=== PATIENT | female | born 1990 | race Caucasian/White ===

== ENCOUNTER 2020-06-24 06:45 | Inpatient (IN) | payer OTHER, SELFPAY ==
[2020-06-24] VITALS (148 sets, daily range): BP systolic 59–133; BP diastolic 27–96; PULSE 75–147; RESP 14; TEMP 36.3–37.1; O2SAT 84–100; BMI 39.7
[2020-06-24 07:38] LABS: Basophils Absolute Auto 0.1 K/mm3 (0.0-0.1); Basophils Percent Auto 0.4 % (0.2-1.2); Eosinophils Absolute Auto 0.1 K/mm3 (0-0.3); Eosinophils Percent Auto 1.3 % (0-4.4); Hematocrit 36.6 % (37.0-47.0); Hemoglobin 12.2 g/dL (12.0-15.0); Immature Granulocyte Absolute 0.15 K/mm3 (0.00-0.031); Immature Granulocyte Percent A 1.3 % (0-0.5); Lymphocytes Absolute Auto 2.53 K/mm3 (0.9-3.2); Lymphocytes Percent Auto 22.7 % (18.3-44.2); Mean Corpuscular HGB Conc 33.3 g/dl (32-36); Mean Corpuscular Hemoglobin 32.4 pg (26-34); Mean Corpuscular Volume 97.3 fl (80-100); Mean Platelet Volume 10.4 fl (7.4-10.4); Monocytes Absolute Auto 0.9 K/mm3 (0.1-0.6); Neutrophils Absolute Auto 7.4 K/mm3 (1.3-6.7); Neutrophils Percent Auto 66.3 % (45.5-73.1); Platelet Count Result 244 k/mm3 (150-375); Red Blood Count 3.76 M/mm3 (4.2-5.4); Red Cell Distribution Width 14.9 % (11.5-14.5); White Blood Count 11.1 K/mm3 (4.5-10.0)
[2020-06-24] MEDS: LACTATED RINGERS 1,000 ML 125 ML IV CONT ×2 (07:39→11:16)
[2020-06-24] MEDS: OXYTOCIN 30 UNITS/NS 500 ML 30 UNITS/500 ML BAG 125 UNITS IV CONT (07:41)
--- NOTE | 2020-06-24 07:41 | PM.IMHP ---
H&P: HPI History of Present Illness Date/Time: 06/24/20 07:17 Chief complaint: Induction of Labor Narrative: Carmen Escobedo is a 29 yo @ 39.0wks (KELLI [birth year]) who presents to L&D for elective IOL. She denies any issues. Has mild, irregular cramping. Good movement. No vaginal bleeding or leakage of fluid. 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) s/p MFM consult Review of Systems Constitutional: Constitutional: Denies chills and Denies fatigue Eyes: Eyes: Denies blurry vision Cardiovascular: Cardiovascular: Denies chest pain and Denies palpitations Respiratory: Respiratory: Denies cough and Denies dyspnea Gastrointestinal: Gastrointestinal: Denies abdominal pain, Denies nausea and Denies vomiting Genitourinary: Comments: no vaginal bleeding or leakage of fluid Neurologic: Denies headache(s) Psychiatric: Psychiatric: Denies anxiety [facility] Family History Family History Father Hemophilia A Son Hemophilia A Social History Social History Substance use: never Gender identity (if verbalized by the patient): Female Spiritual care concerns: No Meds Home Medications and Allergies Home Medications Medication Instructions Recorded Confirmed Type PNV cmb#95-ferrous fumarate-FA 1 tablet PO DAILY 06/04/20 06/04/20 History [] Allergies Allergy/AdvReac Type Severity Reaction Status Date / Time No Known Allergies Allergy Verified 06/24/20 07:30 Vital Signs Vital Signs - 24 hr 06/24/20 07:13 06/24/20 07:16 Pulse Rate 92 93 Blood Pressure 107/61 98/62 L Exam Const: General: comfortable and no acute distress Resp: Effort & Inspection: normal respiratory effort Cardio: Rate: regular rate : Other: FHT's:120's/ mod sarah/ + accels/ no decels TOCO:no ctx's Membranes: AROM, clear @ 0735 Cervix: 3/50/-3 Position: cephalic Skin: General skin exam: normal color Neuro: Speech: normal speech Extrem: General: normal to inspection Psych: Mental Status: mental status grossly normal Assessment and Plan Assessment and plan (1) : Qualifiers: Weeks of gestation: 39 weeks Qualified Code(s): Z3A.39 - 39 weeks gestation of Code(s): Z34.90 - Encounter for supervision of normal , unspecified, unspecified trimester Status: Acute (2) Encounter for elective induction of labor: Code(s): Z34.90 - Encounter for supervision of normal , unspecified, unspecified trimester Status: Acute Additional Plan - Admit to L&D for elective IOL - Plan for pitocin per protocol, AROM clear @ 0735 - Labs reviewed normal; GBS negative - FHT reassuring; continuous monitoring - Anesthesia consult PRN pain
--- NOTE | 2020-06-24 11:05 | WPDANESEPP ---
Anes - Eval Pre Procedure Procedure: labor epidural Date/Time: 06/24/20 11:05 Surgeon: ricardo Preop Diagnosis: pain during labor Pre Op Diagnosis: Induction of Labor Patient Data Age: 29 Gender: F Height: 1.55 m Weight: 95.5 kg Last Vital Signs Temp 36.3 C L 06/24/20 10:00 Pulse 80 06/24/20 11:01 BP 113/70 06/24/20 11:01 Allergies Allergy/AdvReac Type Severity Reaction Status Date / Time No Known Allergies Allergy Verified 06/24/20 07:30 Home Medications Medication Instructions Recorded Confirmed Type PNV cmb#95-ferrous fumarate-FA 1 tablet PO DAILY 06/04/20 06/24/20 History [] Laboratory Tests 06/24/20 06/24/20 06/24/20 07:27 07:27 07:27 WBC 11.1 K/mm3 H K/mm3 (4.5-10.0) RBC 3.76 M/mm3 L M/mm3 (4.2-5.4) Hgb 12.2 g/dL g/dL (12.0-15.0) Hct 36.6 % L % (37.0-47.0) MCV 97.3 fl fl (80-100) MCH 32.4 pg pg (26-34) MCHC 33.3 g/dl g/dl (32-36) RDW 14.9 % H % (11.5-14.5) Plt Count 244 k/mm3 k/mm3 (150-375) MPV 10.4 fl fl (7.4-10.4) Immature Gran % (Auto) 1.3 % H % (0-0.5) Neut % (Auto) 66.3 % % (45.5-73.1) Lymph % (Auto) 22.7 % % (18.3-44.2) [place] % (Auto) 8.0 % % (2.6-8.5) Eos % (Auto) 1.3 % % (0-4.4) Baso % (Auto) 0.4 % % (0.2-1.2) Lymph # (Auto) 2.53 K/mm3 K/mm3 (0.9-3.2) [place] # (Auto) 0.9 K/mm3 H K/mm3 (0.1-0.6) Eos # (Auto) 0.1 K/mm3 K/mm3 (0-0.3) Baso # (Auto) 0.1 K/mm3 K/mm3 (0.0-0.1) Abs Immat Gran (auto) 0.15 K/mm3 H K/mm3 (0.00-0.031) Absolute Neuts (auto) 7.4 K/mm3 H K/mm3 (1.3-6.7) Absolute Nucleated RBC 0.0 K/mm3 K/mm3 (0.0-0.012) Nucleated RBC % 0.0 % % (0.0-0.2) RPR Pending Blood Type O Positive Antibody Screen Negative Patient hx anesthesia problems: none Family hx anesthesia problems: none PMFSH Family History Family History Father Hemophilia A Son Hemophilia A Social History Social History Smoking status: Never smoker Substance use: never Gender identity (if verbalized by the patient): Female Spiritual care concerns: No Exam Day of Procedure 06/24/20 11:05
--- NOTE | 2020-06-24 12:55 | PM.OBPNLAB ---
Pain Control Date/time seen: 06/24/20 12:55 Pain control: epidural Pelvic Exam Dilation (cm): 5 Effacement (%): 50 station: -3 Amniotic membrane status: Ruptured (clear 0740) Contractions Monitor mode: External Contraction frequency: 3 Contraction pattern: Regular Status status: Category l Assessment and Plan Pitocin rate (mU/min): 12 Plan: continuous present management
--- NOTE | 2020-06-24 16:49 | PM.OBPNLAB ---
Pain Control Date/time seen: 06/24/20 16:45 Pelvic Exam Dilation (cm): 8 Effacement (%): 100 station: -1 Amniotic membrane status: Ruptured (clear 0740) Contractions Monitor mode: External Contraction frequency: 3 Contraction pattern: Regular Status status: Category ll (variables) Assessment and Plan Pitocin rate (mU/min): 16 Assessment: active labor Plan: continuous present management
--- NOTE | 2020-06-24 18:14 | P.PCNOB_ITS ---
OB - Delivery Note Procedure Delivery date: 06/24/20 events: Labor Induction Induction method: per misoprostol protocol Delivery augmentation: rupture of membranes Delivery monitor: external FHT and external uterine Route of delivery: Laceration description: None Specimen: No Estimated blood loss (mL): 400 Anesthesia type: Epidural Disposition: floor Narrative: Patient progressed to complete dilation and began pushing with good maternal effort. She pushed for approximately 30 minutes and delivered the head over intact perineum. No nuchal cord was palpated and the shoulders and body delivered without complications. The was immediately placed skin to skin and had good tone and cry. After approximately 1 minute the umbilical cord was then clamped and cut. A segment of the cord was collected for cord gases and the remaining cord blood was collected for typing. With gentle downward traction on the cord, the placenta delivered without complications. Pitocin was then started and bimanual exam revealed a boggy uterus. Bimanual massage was performed until misoprostol could be placed rectally and good fundal tone was noted. The cervix, vagina, and perineum were examined and no lacerations were identified. Sponge, lap, instrument counts were correct at the end procedure. Mom and baby were left bonding in the birthing suite in a stable condition. [place] Baby Date of : 06/24/20 Time of : 17:53 Weeks of gestation at delivery: 39 Infant gender: Female Weight (pounds): 7 Weight (ounces): 13 presentation: vertex position: Right Occiput Anterior Placenta delivery description: Expressed cord vessel description: 3 Vessels score one minute: 9 score five minutes: 9
[2020-06-24] MEDS: ACETAMINOPHEN 500 MG TABLET 1000 MG PO (18:27)
--- NOTE | 2020-06-24 18:40 | PC.NURSE ---
Oxytocin administration on NOV was entered by Ruthy Munoz at 0710 under order for 125 mls/hr, but was really given as oxytocin induction at 2 mls/hr titration (see [facility] notes). Remainder of 500 mls given at 999 mls/hr at 1758 by David Brumfield. Oxytocin order for 125 mls/hr administered at 1810 per Trinity Metzger.
[2020-06-24] MEDS: METHYLERGONOVINE MALEATE 0.2 MG/ML VIAL IM (19:09)
[2020-06-24] MEDS: METHYLERGONOVINE MALEATE 0.2 MG/ML VIAL (20:15)
[2020-06-24] MEDS: IBUPROFEN 600 MG TABLET PO (22:22)
[2020-06-25] MEDS: IBUPROFEN 600 MG TABLET PO ×3 (04:43→16:23)
[2020-06-25 05:20] LABS: Hematocrit 29.6 % (37.0-47.0); Hemoglobin 9.9 g/dL (12.0-15.0)
[2020-06-25 08:00] VITALS: BP 127/82; PULSE 88; RESP 18; TEMP 36.8
--- NOTE | 2020-06-25 08:17 | WPDANLDPN2 ---
Anes-Prog Note L&D Date/Time: 06/25/20 08:17 Comfortable throughout: labor and delivery Neuraxial method: epidural Epidural/Spinal procedure site: clean & non-tender Neuro status: Neuro function grossly intact. Cardiovascular status: normal Respiratory status: normal Airway patency: baseline Mental status: baseline Post-Op hydration status: normal Vital Signs: Last Vital Signs Temp 37.1 C 06/24/20 20:55 Pulse 83 06/24/20 20:55 Resp 14 06/24/20 20:55 BP 110/69 06/24/20 20:55 Pulse Ox 96 06/24/20 20:55 Pain score (VAS): 0 I/O: Intake & Output 06/24/20 06/25/20 06/25/20 23:59 07:59 15:59 Intake Total 500 Output Total 675 Balance -175 Post-procedural complaints: none Patient feedback: Patient satisfied with anesthetic care.
[2020-06-25] MEDS: MULTIVIT/MIN/PREN/FOL AC/IRON TABLET 1 TAB PO (08:25)
[2020-06-25] MEDS: DOCUSATE SODIUM 100 MG CAPSULE PO ×2 (08:26→16:23)
[2020-06-25] MEDS: POLYSACCHARIDE IRON COMPLEX 150 MG CAPSULE PO ×2 (08:26→16:24)
[2020-06-25 09:15] LABS: Rapid Plasma Reagin Non-Reactive (NonReactive)
[2020-06-25] MEDS: ACETAMINOPHEN 325 MG TABLET 650 MG PO (10:39)
--- NOTE | 2020-06-25 11:21 | PC.NURSE ---
Patient was given the opportunity to view the discharge video Mother & Baby Care, The First Two Weeks and to ask questions. Patient declined viewing the video and has been given the mother/baby guide for home reference.
[2020-06-25 12:30] VITALS: BP 127/82; PULSE 88; RESP 18; TEMP 36.8; O2SAT 96
--- NOTE | 2020-06-25 12:45 | PM.OBPNVD ---
OB - PN: Subj Subjective Date/time seen: 06/25/20 12:45 PPD#1 Carmen reports doing well today. Her pain/cramping is controlled w/ PO pain meds. Her bleeding is much sales counselor today,denies any symptoms of anemia. She reports tolerating regular diet. She is voiding and passing gas. She is breast and bottle feeding. She would like to go home today. She denies fever, chills, CP, SOB, cough, headache, vision changes, nausea, vomiting, dizziness or palpitations. OB - PN: Obj Data Labs CBC & Chem 7: 06/25/20 04:39 Labs: Laboratory Results - last 24 hr 06/24/20 06/25/20 07:27 04:39 Hgb 9.9 L Hct 29.6 L RPR Non-reactive OB - PN A/P Assessment and Plan (1) Vaginal delivery: Code(s): O80 - Encounter for full-term uncomplicated delivery Status: Acute Plan day: 1 Plan: routine care and discharge home Comments: - ER return precautions discussed: N/V/abdominal pain, bleeding, PEC signs, fever - Pelvic rest and take meds as prescribed - F/u in clinic in 4 weeks. Time Spent With Patient Time: Total time spent is greater than 50% in coordination of care (as documented) at patient's floor/unit and/or counseling patient: Review of Systems Review of Systems: All systems reviewed & are unremarkable except as noted in HPI and below (HPI) Exam Const: General: comfortable, no acute distress, alert and awake Orientation/consciousness: patient oriented x3 Resp: Effort & Inspection: normal respiratory effort Auscultation: clear to auscultation bilaterally Cardio: Rate: regular rate GI: Auscultation: normal bowel sounds Other: soft, mildly distended, non-tender : Other: fundus firm below umbilicus Psych: Appearance: grossly normal Attitude: cooperative Judgement: Good judgement present (Psych)
--- NOTE | 2020-06-25 17:12 | PC.NURSE ---
Self care and infant care discharge instructions given to pt. including follow up visit date and time. Mother verbalized understanding. No questions or concerns verbalized. Very pleasant and cooperative.
[2020-06-26 08:31] VITALS: BP 120/74; PULSE 81; RESP 20; TEMP 36.9; O2SAT 100
--- NOTE | 2020-06-29 11:52 | PM.OBDSVD ---
DS: Admitting Diagnosis Admitting Diagnosis Admitting Diagnosis: Induction of Labor DS: Discharge Diagnosis Discharge Diagnosis (1) Vaginal delivery: Code(s): O80 - Encounter for full-term uncomplicated delivery Status: Acute OB - DS: Summary OB Procedures : Ultrasound OB Procedures Intrapartum: Spontaneous Vag Delivery OB Procedures: : None Peripartum Data Infant Delivery Method: Natural Vaginal Laceration description: None complications: none 1: Gender: Female Disposition of : home Status at Discharge Functional status at discharge: independent ambulation Overall status at discharge: patient is back to baseline Time Spent with Patient Time attestation: Total time spent providing and/or coordinating discharge services: Exam Const: General: comfortable, no acute distress, alert and awake Orientation/consciousness: patient oriented x3 Resp: Effort & Inspection: normal respiratory effort Auscultation: clear to auscultation bilaterally Cardio: Rate: regular rate GI: Inspection: non-distended GI Palp: Yes Soft to palpation and No Tenderness to palpation present (GI) Auscultation: normal bowel sounds : Other: fundus firm below umbilicus Psych: Appearance: grossly normal Affect: normal affect Attitude: cooperative Judgement: Good judgement present (Psych) Discharge Plan Discharge Attending physician on discharge: Paulette Gonzalez Discharging Clinician: Paulette Gonzalez Anticipated Discharge Date/Time: 06/25/20 18:00 Patient Disposition: Home, Self-Care Activity: pelvic rest Diet: regular Discharge Instructions: Education: Mom and Baby Guide Given to: Mother Follow-Up: Call your delivering provider's office for an appointment to be seen in: 4 Weeks Mom and baby should come to the [facility] for the follow-up appointment. Appointment Date/Time: June 26, 2020 at 8:00 am What to expect at your follow-up visit: Blood Pressure Check Physical Assessment Call [phone] if you are unable to keep your appointment time. BREAST CARE: * Wear a snug supportive bra. Bottle Feeding: * May apply ice packs EPISIOTOMY/PERINEAL CARE: * Until bleeding stops, use your asim bottle after urinating * Change your pad frequently throughout the day * You may take sitz baths several times a day (fill your bathtub with warm water and soak for 20 minutes.) Do NOT bathe in the water * No tub baths until seen by your physician - You may shower ACTIVITY: * Rest as much as possible. * Do not exercise or lift anything heavier than your baby (such as laundry or other children.) * Avoid stairs or driving as much as possible. * Do not put anything into the vagina. No douching, tampons, or sexual activity until seen by physician. NOTIFY PHYSICIAN IF YOU HAVE ANY QUESTIONS OR IF ANY OF THE FOLLOWING SYMPTOMS OCCUR: * If your vaginal bleeding becomes foul smelling. * If your vaginal bleeding becomes more heavy than a period or if your bleeding changes from pink to bright red. However, you may pass an occasional walnut-sized clot once or twice for the first week . * If you experience a sharp, shooting pain in you calves. * If you discover a hard, reddened area on your breast or if you experience flu-like symptoms. DIET: * Eat regular, well-balanced meals. * Drink plenty of fluids daily. If , drink to thirst. Patient Instructions: Antibiotic Form Stand Alone Forms: General Discharge Information Follow-up/Referrals: Paulette Gonzalez MD [Physician] - 4 Weeks Discharge Medications: New ibuprofen 600 mg Tablet 600 mg PO Q6H PRN (Reason: Cramping) 10 Days Qty: 40 RF: 0 acetaminophen [Mapap (acetaminophen)] 325 mg Tablet 650 mg PO Q6H PRN (Reason: Mild Pain (1-3) Or Headache) 10 Days Qty: 40 RF: 0 Continued PNV cmb#95-ferrous fumarate-FA []
== END 2020-06-25 18:23 | disposition home or self-care (01) | DRG 560 ==
LOC: ANHLDR 06:52 → ANHOB2 20:40
PROVIDERS: Admitting Provider Obstetrics & Gynecology; Visit Provider Obstetrics & Gynecology
DX: O76 Abnormality in fetal heart rate and rhythm complicating labor and delivery (principal); Z3A.39 39 weeks gestation of pregnancy; Z37.0 Single live birth
CPT/HCPCS: 36415; 85014; 85018; 85025; 86592; 86850; 86900; 86901; A9270; J2210; J2590; J2795; J7120

== ENCOUNTER 2020-09-27 00:30 | Outpatient (CLI) | payer OTHER, SELFPAY ==
[2020-09-27 18:50] LABS: SARS-CoV-2 RNA PCR Negative
== END 2020-09-27 00:31 | disposition home or self-care (01) ==
LOC: ANHCOVIDDT 00:30
PROVIDERS: Visit Provider Surgery
DX: Z01.812 Encounter for preprocedural laboratory examination (principal); Z20.822 Contact with and (suspected) exposure to COVID-19
CPT/HCPCS: C9803; U0003

== ENCOUNTER 2020-09-30 00:33 | Day surgery (SDC) | payer OTHER, SELFPAY ==
[2020-09-21 10:36] VITALS: BMI 34.1
--- NOTE | 2020-09-29 16:08 | PM.SD ---
Same Day Admit/Disch: HPI History of Present Illness Chief complaint: Umbilical Hernia Narrative: Carmen Escobedo is a 30 year old female who developed an umbilical hernia during her recent . She gave in early June. The umbilical hernia got smaller but did not go away. It remains present and is tender to palpation. It hurts from time to time as well. She was seen in the office in is taken to surgery now for umbilical hernia repair. [facility] Family History Family History Father Hemophilia A Heart disease Son Hemophilia A Other Diabetes mellitus Social History Social History Years smoked: 11 Smoking status: Current every day smoker Tobacco type: cigarettes Alcohol intake: never Substance use: never Living arrangements: with family Gender identity (if verbalized by the patient): Female Spiritual care concerns: No Same Day Admit/Disch: Med Pre-admit Medications Home Medications Medication Instructions Recorded Confirmed Type PNV cmb#95-ferrous fumarate-FA 1 tablet PO DAILY 90 Days #90 06/25/20 09/30/20 Rx [] tablet hydrocodone-acetaminophen 1 - 2 tablet PO Q6H PRN #7 tablet 09/30/20 Rx ketorolac 10 mg PO Q6H 4 Days #16 tablet 09/30/20 Rx Exam Const: General: comfortable, no acute distress, alert and awake HENMT: Head: normocephalic and atraumatic Mouth: Yes Normal oral and palatal mucosa present Eyes: Conjunctivae: conjunctivae normal Pupils: Equal, round and reactive pupils present EOM: EOMs intact bilaterally Neck: Neck: normal visual inspection, no lymphadenopathy and nontender Resp: Effort & Inspection: normal respiratory effort Auscultation: clear to auscultation bilaterally Cardio: Rate: regular rate Rhythm: regular rhythm Heart sounds: no gallops, no murmurs and no rubs GI: Inspection: non-distended and visible herniation ( Umbilical) GI Palp: Yes Soft to palpation, Yes Tenderness to palpation present (GI), No Hepatomegaly present, No Splenomegaly present and Yes Hernia present ( tender but reducible umbilical hernia) Auscultation: normal bowel sounds Skin: Lesions: no lesions Rashes: no rashes Neuro: General: no focal motor deficits and CN's II-XI intact bilaterally Cranial nerves: Yes Equal, round and reactive pupils present, Yes Bilaterally intact EOM present, Yes facial symmetry and Yes Midline tongue present Speech: normal speech Motor exam (neuro): 5/5 motor strength present throughout and Motor abnormalities not present Extrem: General: no clubbing, cyanosis or edema and edema Psych: Affect: normal affect Thought process: Normal thought process present Insight: Good insight present (Psych) DS: Summary Hospital Course Hospital Course: Patient went home after outpatient surgical procedure Time Spent with Patient Time attestation: Total time spent providing and/or coordinating discharge services: DS: Admitting Diagnosis Admitting Diagnosis Admitting Diagnosis: symptomatic reducible umbilical hernia - plan to proceed with umbilical hernia repair under anesthesia. The procedure the risks the benefits have been discussed. All questions were answered. Patient agrees to go ahead. DS: Discharge Diagnosis Discharge Diagnosis (1) Umbilical hernia without mention of obstruction or gangrene: Qualifiers: Obstruction and gangrene presence: without obstruction or gangrene Qualified Code(s): K42.9 - Umbilical hernia without obstruction or gangrene Code(s): K42.9 - Umbilical hernia without obstruction or gangrene Status: Acute Discharge Plan Discharge Patient Disposition: Home, Self-Care Discharge Instructions: 1. May shower the day after surgery over incision. 2. Call office for: -Wound increasingly painful or bleeding -Vomiting -Fever of greater than 101 degrees 3. Expect some blood on d
[2020-09-30 10:15] VITALS: BP 112/67; PULSE 79; RESP 20; TEMP 36.9; O2SAT 100
--- NOTE | 2020-09-30 10:38 | WPDHPUPDATE1 ---
History and Physical Update Update Date/Time: 09/30/20 10:38 History and Physical has been reviewed, including an updated exam of the patient. There are NO changes in the patient's condition. Risks, benefits, and alternatives have been discussed and questions answered. Patient agrees to proceed with procedure.
[2020-09-30] MEDS: ACETAMINOPHEN 500 MG TABLET 1000 MG PO (10:42)
[2020-09-30] MEDS: LACTATED RINGERS 1,000 ML 30 ML IV CONT (10:42)
[2020-09-30] MEDS: KETOROLAC 15 MG/ML VIAL (*BKC) IV PUSH (10:42)
--- NOTE | 2020-09-30 11:10 | WPDANESEPPF ---
Anes - Initial Pre Proc Eval Procedure: Operation Date: 09/30/20 12:00 Proposed Procedures p Repair of Umbilical Hernia - Tomasz Mehta MD Date/Time: 09/30/20 11:10 Surgeon: Tomasz Mehta MD Pre Op Diagnosis: Umbilical Hernia Patient Data Age: 30 Gender: F Height: 5 ft 1 in Weight: 83.6 kg Last Vital Signs Temp 98.5 F 09/30/20 10:15 Pulse 79 09/30/20 10:15 Resp 20 09/30/20 10:15 BP 112/67 09/30/20 10:15 Pulse Ox 100 09/30/20 10:15 Allergies Allergy/AdvReac Type Severity Reaction Status Date / Time No Known Allergies Allergy Verified 09/30/20 10:14 Home Medications Medication Instructions Recorded Confirmed Type PNV cmb#95-ferrous fumarate-FA 1 tablet PO DAILY 90 Days #90 06/25/20 09/30/20 Rx [] tablet Patient hx anesthesia problems: none Family hx anesthesia problems: none PMFSH Family History Family History Father Hemophilia A Heart disease Son Hemophilia A Other Diabetes mellitus Social History Social History Years smoked: 11 Smoking status: Current every day smoker Tobacco type: cigarettes Alcohol intake: never Substance use: never Living arrangements: with family Gender identity (if verbalized by the patient): Female Spiritual care concerns: No Anes - Eval Final PreProcedure Day of Procedure 09/30/20 11:10 Patient weight: overweight Heart: regular rate and rhythm Lungs: clear to auscultation Airway: Mallampati scale class II Neurological: alert and oriented Last oral intake: >/= 8 hours ASA classification: II Emergent: no Anesthetic plan: proceed Anesthesia type and monitoring: general GIVS and standard monitoring Informed Consent: The patient's anesthetic plan and its attendant risks and benefits were discussed with the patient/family/POA. Questions were solicited and answers provided to the satisfaction of the patient/family/POA.
[2020-09-30] MEDS: ceFAZolin 2 GM/D5W 50 ML 2 GM/50 ML BAG IVPB (12:53)
[2020-09-30 13:21] VITALS: BP 96/75; PULSE 65; RESP 14; O2SAT 97
--- NOTE | 2020-09-30 13:27 | P.OP_ITS ---
Procedure Note - Detailed Date of procedure: 09/30/20 Pre-op diagnosis: Umbilical Hernia Post-op diagnosis: same Procedure performed: Umbilical hernia repair Description of procedure: Patient was taken to the operating room and IV sedation was administered. Prep and drape was carried out. The proposed incision along the lower margin of the umbilicus was marked on the skin. Local anesthetic was infiltrated into the skin and the deeper subcutaneous tissues. Incision was made and dissection was carried down through the skin and to the hernia sac. The sac was then dissected free from the umbilical skin and the surrounding subcutaneous tissues. It was dissected down to its neck. Additional local anesthetic was infiltrated into the neck and the fascia surrounding the neck of the hernia sac. The sac was then amputated at its neck. The subcutaneous was undermined around the hernia defect. Additional local was infiltrated around the fascia. The hernia defect was closed with [id number] mattress sutures of 0 Ethibond. The umbilical skin was tacked to the fascia with 3 0 Vicryl suture. The subcutaneous was closed with 3 0 Vicryl. Subcuticular interrupted 4 O Vicryl skin stitches were placed. The skin was then closed with running 4 0 Monocryl subcuticular suture. Wound was dressed with Exofin surgical adhesive. The patient was awakened and taken to recovery in good condition. Counts were correct x2. Anesthesia: MAC and local (0.5% Marcaine with Exparel) Surgeon: Tomasz Mehta MD Program And Research Coordinator: Omari FRAUSTO Estimated blood loss (mL): 5 Drains: No Packing: No Pathology: none sent Complications: None Condition: stable Disposition: same day Findings: Seven millimeter hernia defect
[2020-09-30 13:50] VITALS: BP 104/77; PULSE 64; RESP 12
[2020-09-30 14:03] VITALS: BP 98/75; PULSE 72; RESP 16
== END 2020-09-30 14:22 | disposition home or self-care (01) ==
PROVIDERS: Visit Provider Surgery
PROC: (CPT 49585; principal; 2020-09-30 12:00)
DX: K42.9 Umbilical hernia without obstruction or gangrene (principal); F17.210 Nicotine dependence, cigarettes, uncomplicated
CPT/HCPCS: 49585; A9270; C9290; J0690; J1885; J2001; J2250; J2405; J2704; J3010; J7120

== ENCOUNTER 2022-10-09 12:33 | Emergency (ER) | payer OTHER, SELFPAY ==
[2022-10-09 12:43] VITALS: BP 107/67; PULSE 77; RESP 18; TEMP 36.9; O2SAT 100
--- NOTE | 2022-10-09 13:00 | ED.URI ---
HPI - URI/Sore Throat General Chief Complaint: Upper Respiratory Infection Stated Complaint: Cough Time Seen by Provider: 10/09/22 12:58 Source: patient and RN notes reviewed Mode of arrival: ambulatory Limitations: no limitations History of Present Illness HPI Narrative: 32-year-old female presents concern for one-month history of cough, nasal congestion after a positive influenza test 1 month ago. She reports she started having a sore throat today. Reports using [id number] medications without relief. Denies fever, shortness of breath MD elicited complaint: cough and sore throat Related Data Allergies Allergy/AdvReac Type Severity Reaction Status Date / Time No Known Allergies Allergy Verified 10/09/22 12:48 Review of Systems Review of Systems: CONSTITUTIONAL: Denies malaise, chills, sweats, or fever. EYES: Denies visual changes, redness, or discharge. ENT: Reports rhinorrhea, congestion, and sore throat. Denies sinus pain, otalgia CARDIOVASCULAR: Denies chest pain, palpitations, or edema. RESPIRATORY: Reports persistent productive cough. Denies dyspnea. GASTROINTESTINAL: Denies abdominal pain, nausea, vomiting, diarrhea SKIN: Denies rash or itching. MUSCULOSKELETAL: Denies myalgia. NEUROLOGIC: Denies headache. All systems reviewed & are unremarkable except as noted in HPI and below PMFSH Surgical History Surgical History Umbilical hernia without mention of obstruction or gangrene 09/30/20 Family History Family History Father Hemophilia A Heart disease Son Hemophilia A Other Diabetes mellitus Social History Social History (Updated 02/23/22 @ 09:13 by Susan Alexis MA) Years smoked: 11 Smoking status: Current some day smoker Tobacco type: cigarettes Alcohol intake: never Substance use: never Substance use type: does not use Additional occupation/education comments: [employer] Gender identity (if verbalized by the patient): Female Sexual Orientation (if Verbalized by the Patient): Straight or Heterosexual Spiritual care concerns: No Comments At time of signature, agree with nursing past medical, surgical, social and family history. There is no relevant family history pertinent to the presenting complaint Exam Narrative: GENERAL: Nontoxic-appearing and in no acute distress. HEAD: Normocephalic EYES: PERRLA, conjunctivae clear ENT: Nares clear, turbinates edematous and erythematous. Mucous membranes moist. TM pearly quiñones with dull light reflex bilaterally; no tragal tenderness. Oropharynx not erythematous without lesions. Tonsils not enlarged and without exudate, no drooling, no hoarseness, no trismus, uvula midline. NECK: Supple. No lymphadenopathy CHEST: Clear to auscultation, breath sounds equal. No wheezing, rhonchi, rales, or stridor. No respiratory distress, speaks in full sentences. HEART: Regular rate and rhythm. No murmur heard. SKIN: Warm, dry, no rash. NEURO: Alert and oriented x3. PSYCH: Normal mood and affect Course Course Emergency Course: Patient is aware of diagnosis, understands and agrees to treatment plan. Anticipatory guidance given. Patient agrees to follow-up as directed and is aware of reasons to seek care at the emergency department. Portions of this record may have been created with voice recognition software Level of Care: Express Care Visit Vital Signs Vital signs: Vital Signs Temperature 98.4 F 10/09/22 12:43 Pulse Rate 77 10/09/22 12:43 Respiratory Rate 18 10/09/22 12:43 Blood Pressure 107/67 10/09/22 12:43 Pulse Oximetry 100 10/09/22 12:43 Oxygen Delivery Room Air 10/09/22 12:43 Temperature 98.4 F 10/09/22 12:43 Pulse Rate 77 10/09/22 12:43 Respiratory Rate 18 10/09/22 12:43 Blood Pressure 107/67 10/09/22 12:43 Pulse Oximetry 100 10/09/22 12:43 Oxygen Delivery Room Air 10/09/22 12:43
== END 2022-10-09 13:13 | disposition home or self-care (01) ==
PROVIDERS: Emergency Provider Nurse Practitioner
DX: J40 Bronchitis, not specified as acute or chronic (principal); J32.9 Chronic sinusitis, unspecified; F17.210 Nicotine dependence, cigarettes, uncomplicated
CPT/HCPCS: 87081; 87880; 99213; G0463

== ENCOUNTER 2023-02-26 10:51 | Emergency (ER) | payer OTHER, SELFPAY ==
[2023-02-26 11:01] VITALS: BP 122/75; PULSE 90; RESP 18; TEMP 36.9; O2SAT 100
--- NOTE | 2023-02-26 11:14 | ED.URI ---
HPI - URI/Sore Throat General Chief Complaint: Upper Respiratory Infection Stated Complaint: . Source: patient Mode of arrival: ambulatory Limitations: no limitations History of Present Illness HPI Narrative: 32-year-old female presents to [facility] complaint of bilateral ear pain, right is worse than left for the past 2 weeks. Patient reports that she then started with cold symptoms 3 days ago of cough, runny nose, nasal congestion and chest congestion. Patient is a smoker. Patient has been taking [id number] Benadryl with minimal relief. Patient denies sick contacts. Patient denies recent travel. Patient denies fever, body aches, chills, nausea, vomiting or diarrhea. MD elicited complaint: rhinorrhea, nasal congestion and other (bilateral ear pain ) Onset (ago): week(s) (2) Able to tolerate fluids by mouth: Yes Exacerbating factors: nothing Relieving factors: nothing Treatments prior to arrival: cold medicine Related Data Allergies Allergy/AdvReac Type Severity Reaction Status Date / Time No Known Allergies Allergy Verified 02/26/23 11:02 Review of Systems Constitutional: Constitutional: Denies chills, Denies fatigue, Denies fever(s) and Denies weakness ENT: Denies dizziness, Denies epistaxis, Reports nasal congestion and Denies sore throat Comments: Bilateral ear pain Cardiovascular: Cardiovascular: Denies chest pain Respiratory: Respiratory: Reports chest congestion, Reports cough, Denies dyspnea and Denies wheezing Gastrointestinal: Gastrointestinal: Denies diarrhea, Denies nausea and Denies vomiting Integumentary/Breasts: Skin/Breast: Denies erythema and Denies rash Neurologic: Denies dizziness, Denies syncope and Denies headache(s) [facility] Surgical History Surgical History Umbilical hernia without mention of obstruction or gangrene 09/30/20 Family History Family History Father Hemophilia A Heart disease Son Hemophilia A Other Diabetes mellitus Social History Social History Years smoked: 11 Smoking status: Current some day smoker Tobacco type: cigarettes Alcohol intake: never Substance use: never Substance use type: does not use Living arrangements: with family Occupation/Education: occupation Additional occupation/education comments: [employer] Gender identity (if verbalized by the patient): Female Sexual Orientation (if Verbalized by the Patient): Straight or Heterosexual Spiritual care concerns: No Comments At time of signature, I agree with nursing past medical, surgical, social and family history. There is no relevant family history pertinent to the presenting complaint. Exam Const: General: healthy appearing and no acute distress Nutritional Appearance: well nourished Orientation/consciousness: patient oriented x3 Limitations: no limitations HENMT: Head: normal to inspection Ears: external ears normal, EAC's normal and TM abnormal (Left TM normal) dull on the right, wth effusion serous on the right and erythematous on the right Face/Nose/Sinus: Normal external nose present Face and sinus: normal facial exam and sinuses nontender Mouth: Yes Normal oral and palatal mucosa present and Yes moist mucous membranes Throat: posterior oropharynx normal and uvula midline Eyes: Conjunctivae: conjunctivae normal Neck: Neck: normal visual inspection Resp: Effort & Inspection: normal respiratory effort and not labored Auscultation: clear to auscultation bilaterally, no crackles, no rales, no rhonchi and no wheezes Cardio: Rate: regular rate Rhythm: regular rhythm Heart sounds: no murmurs Skin: General skin exam: normal color Rashes: no rashes Wounds: no wounds Neuro: General: patient oriented x3 Psych: Mental Status: mental status grossly normal Affect: normal affect Attitu
== END 2023-02-26 11:20 | disposition home or self-care (01) ==
PROVIDERS: Emergency Provider Nurse Practitioner Family
DX: H65.01 Acute serous otitis media, right ear (principal); F17.210 Nicotine dependence, cigarettes, uncomplicated
CPT/HCPCS: 99213; G0463

== ENCOUNTER 2024-01-17 10:53 | Outpatient (CLI) | payer MEDICAID, SELFPAY ==
--- NOTE | ~2024-01-17 | US_ITS ---
EXAMINATION: US OB <=14 wk fetus w TV DATE: 01/17/2024 11:19 INDICATION: Threatened . No heart motions by physical examination. TECHNIQUE: Real-time transabdominal and transvaginal obstetric ultrasound. FINDINGS: No prior studies for comparison. The uterus measures 8.1 x 4.7 x 5.7 cm. There is an intrauterine gestational sac, with pole jerry ntified. The crown rump length measures 0.78 cm, which correlates with a estimated gestational age o f 6 weeks 5 days. heart tones are identified measuring 121 bpm. There is a corpus luteal cyst of the right ovary measuring 1.9 cm. Left ovary unremarkable. No free fluid in the pelvis. IMPRESSION: 1. SL IUP with an EGA of 6 weeks, 5 days (EDC by current ultrasound of 09/06/2024). Reviewed, dictated and finalized at location B. IMPRESSION: 1. SL IUP with an EGA of 6 weeks, 5 days (EDC by current ultrasound of 09/06/20 24).
== END 2024-01-17 10:54 ==
LOC: MICIMG 10:54
PROVIDERS: PCP Obstetrics & Gynecology; Visit Provider Obstetrics & Gynecology
DX: O20.0 Threatened abortion (principal); Z3A.01 Less than 8 weeks gestation of pregnancy
CPT/HCPCS: 76801; 76817

== ENCOUNTER 2024-01-31 10:49 | Outpatient (CLI) | payer MEDICAID, SELFPAY | END 2024-01-31 10:50 | disposition home or self-care (01) | LOC: ANHAUDASC 10:50 | PROVIDERS: PCP Obstetrics & Gynecology; Visit Provider Otolaryngology | DX: H69.90 Unspecified Eustachian tube disorder, unspecified ear (principal); H90.71 Mixed conductive and sensorineural hearing loss, unilateral, right ear, with unrestricted hearing on the contralateral side | CPT/HCPCS: 92557; 92567 ==

== ENCOUNTER 2024-02-07 09:11 | Outpatient (CLI) | payer MEDICAID, SELFPAY ==
[2024-02-07 13:32] LABS: Glucose 1 Hour PP 50gm Dose 146 mg/dL
[2024-02-07 14:11] LABS: Hepatitis B Surface Antigen Negative (Negative); Rubella IgG Antibody 6.9 IU/ML
[2024-02-07 14:17] LABS: HIV 1/2 Ab P24 Ag Result Negative (Negative)
[2024-02-07 14:31] LABS: Basophils Percent Auto 0.4 % (0.2-1.2); Eosinophils Absolute Auto 0.1 K/mm3 (0-0.3); Eosinophils Percent Auto 1.7 % (0-4.4); Hematocrit 39.1 % (37.0-47.0); Hemoglobin 13.3 g/dL (12.0-15.0); Immature Granulocyte Absolute 0.03 K/mm3 (0.00-0.031); Immature Granulocyte Percent A 0.4 % (0-0.5); Lymphocytes Absolute Auto 2.88 K/mm3 (0.9-3.2); Lymphocytes Percent Auto 36.8 % (18.3-44.2); Mean Corpuscular Hemoglobin 32.8 pg (26-34); Mean Corpuscular Volume 96.5 fl (80-100); Mean Platelet Volume 10.5 fl (7.4-10.4); Monocytes Absolute Auto 0.6 K/mm3 (0.1-0.6); Monocytes Percent Auto 7.5 % (2.6-8.5); Neutrophils Absolute Auto 4.2 K/mm3 (1.3-6.7); Neutrophils Percent Auto 53.2 % (45.5-73.1); Platelet Count Result 229 k/mm3 (150-375); Red Blood Count 4.05 M/mm3 (4.2-5.4); Red Cell Distribution Width 12.6 % (11.5-14.5); White Blood Count 7.8 K/mm3 (4.5-10.0)
[2024-02-07 17:11] LABS: Rapid Plasma Reagin Non-Reactive (NonReactive)
[2024-02-11 12:08] LABS: CMV IgG Antibody >10.00 U/mL
== END 2024-02-07 09:12 | disposition home or self-care (01) ==
LOC: ANHLAB 09:12
PROVIDERS: PCP Obstetrics & Gynecology; Visit Provider Obstetrics & Gynecology
DX: Z34.90 Encounter for supervision of normal pregnancy, unspecified, unspecified trimester (principal); Z3A.00 Weeks of gestation of pregnancy not specified; E66.9 Obesity, unspecified
CPT/HCPCS: 36415; 82947; 84702; 85025; 86592; 86644; 86703; 86747; 86762; 86787; 86900; 86901; 87086; 87088; 87340; G0432

== ENCOUNTER 2024-02-12 07:03 | Outpatient (CLI) | payer MEDICAID, SELFPAY ==
[2024-02-12 07:30] LABS: Glucose Fasting Gestational 91 mg/dL (>/=95)
== END 2024-02-12 07:04 | disposition home or self-care (01) ==
LOC: ANHLAB 07:05
PROVIDERS: Visit Provider Obstetrics & Gynecology
DX: O99.810 Abnormal glucose complicating pregnancy (principal); Z3A.00 Weeks of gestation of pregnancy not specified
CPT/HCPCS: 36415; 82951; 82952

== ENCOUNTER 2024-03-04 06:59 | Outpatient (CLI) | payer OTHER, SELFPAY ==
[2024-03-04 07:23] LABS: Glucose Fasting Gestational 82 mg/dL (>/=95)
[2024-03-04 09:14] LABS: Glucose 1 Hour Gest 130 mg/dL (>/=180)
[2024-03-04 10:11] LABS: Glucose 2 Hour Gest 133 mg/dL (>/= 155)
[2024-03-04 11:25] LABS: Glucose 3 Hour Gest 87 mg/dL (>/=140)
== END 2024-03-04 07:00 | disposition home or self-care (01) ==
LOC: ANHLAB 07:00
PROVIDERS: Visit Provider Obstetrics & Gynecology
DX: E66.9 Obesity, unspecified (principal)
CPT/HCPCS: 36415; 82951; 82952

== ENCOUNTER 2024-03-26 10:33 | Outpatient (CLI) | payer OTHER, SELFPAY | END 2024-03-26 10:34 | disposition home or self-care (01) | LOC: ANHLAB 10:35 | PROVIDERS: Visit Provider Obstetrics & Gynecology | DX: R35.0 Frequency of micturition (principal) | CPT/HCPCS: 87086; 87088 ==

== ENCOUNTER 2024-04-29 15:48 | Outpatient (CLI) | payer OTHER, SELFPAY ==
--- NOTE | ~2024-04-29 | XR_ITS ---
EXAMINATION: XR chest 1V DATE: 04/29/2024 16:09 INDICATION: Wheezing. TECHNIQUE: A single frontal view of the chest was obtained. COMPARISON: None. FINDINGS: There is no pneumonia, pleural effusion, or pneumothorax. The heart size is normal. IMPRESSION: 1. No acute cardiopulmonary disease. Reviewed, dictated and finalized at location A.
== END 2024-04-29 15:49 | disposition home or self-care (01) ==
LOC: ANHIMG 15:50
PROVIDERS: PCP Nurse Practitioner Family; Visit Provider Obstetrics & Gynecology
DX: R06.2 Wheezing (principal)
CPT/HCPCS: 71045